=== PATIENT | female | born 1990 | race Caucasian/White ===

== ENCOUNTER 2024-07-26 22:27 | Emergency (ER) | payer BC ==
[2024-07-26] MEDS: Ketorolac 30 MG/ML SDV IM ONE (23:07)
== END 2024-07-27 01:30 | disposition home or self-care (01) ==
LOC: JD.ED 22:27
DX: S89.92XA Unspecified injury of left lower leg, initial encounter (principal); Z79.890 Hormone replacement therapy; X50.1XXA Overexertion from prolonged static or awkward postures, initial encounter; Y93.67 Activity, basketball
CPT/HCPCS: 73564; 96372; 99283; J1885